=== PATIENT | female | born 1990 | race Two or more races ===

== ENCOUNTER 2024-05-21 23:04 | Emergency (ER) | payer MEDICAID ==
[~2024-05-21] VITALS: Ht 167.6 cm; Wt 80.3 kg
[2024-05-21 23:09] VITALS: BP 107/70; PULSE 78; O2SAT 97
[2024-05-22 00:02] VITALS: RESP 14
[2024-05-22] MEDS: ondansetron 4mg rapidly disintigrating tab PO ONE (00:24)
[2024-05-22] MEDS ORDERED: ONDA-245 PO (01:04)
[2024-05-22] MEDS: FENTANYL-0.9 % NACL/PF 100 ML IV PRN (01:10)
[2024-05-22] MEDS: ibuprofen tablet 400 MG TABLET PO ONE (01:16)
[2024-05-22] MEDS: dicyclomine 10 MG capsule PO ONE (01:16)
[2024-05-22 01:20] VITALS: TEMP 98
== END 2024-05-22 01:23 | disposition home or self-care (01) ==
LOC: ER 23:06
DX: K52.9 Noninfective gastroenteritis and colitis, unspecified (principal)
CPT/HCPCS: 99284